=== PATIENT | male | born 1980 | race Two or more races ===

== ENCOUNTER → 2017-03-22 | Outpatient (CLI) | payer OTHER ==
[2017-03-24 10:29] LABS: APPEARANCE Normal; HEAD SIZE ABNORMAL 0.5 %; MIDPIECE ABNORMAL 9.5 %; MOTILE/EJACULATE 0 x10(6) (>=9.0); MOTILE/mL 0 x10(6) (>=6.0); MOTILITY 0 % (>=40); SPERM/ML 53.9 x10(6) (>=15.0)
== END ==
LOC: CLAB 08:38
PROVIDERS: ATTEND Internal Medicine
DX: Z13.9 Encounter for screening, unspecified (principal)
CPT/HCPCS: 89322